=== PATIENT | female | born 1965 | race Hispanic/Latino ===

== ENCOUNTER 2017-11-06 15:57 | Emergency (ER) | payer SELFPAY ==
[2017-11-06 16:04] VITALS: BP 128/95
[2017-11-06] MEDS ORDERED: NACL 0.9% 1000 ML 1,000 ML IV ONE (17:46)
[2017-11-06] MEDS ORDERED: PEPCID IV ONE (17:46)
[2017-11-06] MEDS ORDERED: BENADRYL IV ONE (17:46)
--- NOTE | 2017-11-06 17:50 | Emergency Department Report ---
Chief Complaint: Allergic Reaction Stated Complaint: RASH Time Seen by Provider: 11/06/17 17:39 - HPI History of Present Illness: 52-year-old female presents to the emergency department via EMS with a complaint of a rash and itching "all over." She stated a friend's house last night and woke up with this rash to her legs, arms, abdomen and she says that it seems to be spreading. She was given some type of treatment for "allergic reaction" by EMS but they are unsure what she was given. She does not have any past medical history but does not follow up with a primary care physician. She denies any fever or any discomfort anywhere. - ROS Review of Systems: Positive for itching and rash/urticaria Negative for fever, nausea, vomiting, bleeding or drainage - Exam Vital Signs: Vital Signs 11/06/17 15:59 Temperature 98.3 F Pulse Rate 86 Respiratory 16 Rate Blood Pressure 128/95 O2 Sat by Pulse 99 Oximetry Physical Exam: Patient appears to have urticaria to the bilateral legs, arms and to her abdomen. There are some excoriations consistent with her complaint of itching/ pruritus. MSE screening note: Focused history and physical exam performed. Due to findings the following was ordered: Patient will get some IV fluids, Solu-Medrol, Pepcid and Benadryl and will be reassessed. ED Disposition for MSE Condition: Stable Referrals: PRIMARY CARE [Primary Care Provider] - 3-5 Days
--- NOTE | 2017-11-06 19:07 | Emergency Department Report ---
HPI - General Chief Complaint: Allergic Reaction Time Seen by Provider: 11/06/17 17:39 - HPI HPI: 52-year-old female presents to the emergency department via EMS with a complaint of a rash and itching "all over." She stated a friend's house last night and woke up with this rash to her legs, arms, abdomen and she says that it seems to be spreading. She was given some type of treatment for "allergic reaction" by EMS but they are unsure what she was given. She does not have any past medical history but does not follow up with a primary care physician. She denies any fever or any discomfort anywhere. ED Past Medical Hx - Past Medical History Previous Medical History?: No - Surgical History Past Surgical History?: No - Social History Smoking Status: Current Every Day Smoker Substance Use Type: None - Medications Home Medications: Home Medications Medication Instructions Recorded Confirmed Last Taken Type Famotidine [Pepcid] 10 mg PO BID #10 tablet 11/06/17 Unknown Rx predniSONE [Deltasone] 20 mg PO BID #10 tab 11/06/17 Unknown Rx ED Review of Systems ROS: Stated complaint: RASH Other details as noted in HPI Comment: All other systems reviewed and negative Constitutional: denies: chills, fever Eyes: denies: eye pain, eye discharge, vision change ENT: denies: ear pain, throat pain Respiratory: denies: cough, shortness of breath, wheezing Cardiovascular: denies: chest pain, palpitations Gastrointestinal: denies: abdominal pain, nausea, diarrhea Genitourinary: denies: urgency, dysuria, discharge Musculoskeletal: denies: back pain, joint swelling, arthralgia Skin: rash, pruritus Neurological: denies: headache, weakness, paresthesias Physical Exam - Physical Exam Vital Signs: Vital Signs 11/06/17 15:59 Temperature 98.3 F Pulse Rate 86 Respiratory 16 Rate Blood Pressure 128/95 O2 Sat by Pulse 99 Oximetry Physical Exam: GENERAL: The patient is well-developed well-nourished. HENT: Normocephalic. Atraumatic. Patient has moist mucous membranes. EYES: Extraocular motions are intact. Pupils equal reactive to light bilaterally. NECK: Supple. Trachea is midline. CHEST/LUNGS: Clear to auscultation. There is no respiratory distress noted. HEART/CARDIOVASCULAR: Regular. There is no tachycardia. There is no murmur. ABDOMEN: Abdomen is soft, nontender. Patient has normal bowel sounds. There is no abdominal distention. SKIN: The patient has urticaria to the bilateral legs, bilateral arms, abdomen and lower back. It is worst to the posterior left upper arm and the right medial thigh. NEURO: The patient is awake, alert, and oriented. The patient is cooperative. The patient has no focal neurologic deficits. The patient has normal speech and gait. MUSCULOSKELETAL: There is no tenderness or deformity. There is no limitation range of motion. There is no evidence of acute injury. ED Course Vital Signs 11/06/17 15:59 Temperature 98.3 F Pulse Rate 86 Respiratory 16 Rate Blood Pressure 128/95 O2 Sat by Pulse 99 Oximetry ED Medical Decision Making - Medical Decision Making The patient's vital signs and stable throughout her ED course including being afebrile. She was given Solu-Medrol, Benadryl and Pepcid. She was also given some IV fluid resuscitation. Upon reevaluation she is feeling improved. It does not appear to be spreading but it may not have yet started to recede. However the patient says that the itching has gone away. She appears safe for discharge home at this time. She has been given a referral for both primary care and dermatology. She will go home with steroids and Pepcid and will black pickler Benadryl to take. She will return to the ER with any worsening of her symptoms or any acute distress. I do not feel that it is necessarily bedbugs or scabies as other people have used that bad and not gotten the rash and she does not appear to have any lesions within the waistband or between the fingers and it does not appear to be intertriginous - Differential Diagnosis allergic reaction, dermatitis, cellulitis, bedbugs Critical care attestation.: If time is entered above; I have spent that time in minutes in the direct care of this critically ill patient, excluding procedure time. ED Disposition Clinical Impression: Urticaria Allergic reaction Qualifiers: Encounter type: initial encounter Qualified Code(s): T78.40XA - Allergy, unspecified, initial encounter Disposition: DC-01 TO HOME OR SELFCARE Is pt being admited?: No Condition: Stable Instructions: Urticaria (ED) Additional Instructions: Please follow up with a primary care physician in the next few days. I have also given a referral for a local fleet administrative assistant, Dr. evangelista, to follow up regarding your rash and urticaria. Please take the medications as prescribed. He can also take Benadryl every 8 hours as needed for itching. Benadryl can be sedating sometimes however. Return to the emergency Department with any worsening of your symptoms or any acute distress. Prescriptions: Famotidine [Pepcid] 10 mg PO BID #10 tablet predniSONE [Deltasone] 20 mg PO BID #10 tab Referrals: PRIMARY CAREMD [Primary Care Provider] - 3-5 Days RONALDO EVANGELISTA MD [Staff Physician] - 3-5 Days [facility] [Outside] - 3-5 Days Time of Disposition: 19:07
== END 2017-11-06 19:15 | disposition home or self-care (01) ==
LOC: ED 15:57
DX: L50.9 Urticaria, unspecified (principal); T78.40XA Allergy, unspecified, initial encounter; F17.200 Nicotine dependence, unspecified, uncomplicated
CPT/HCPCS: 96361; 96374; 96375; 99282; J1200; J2930; J7030